=== PATIENT | female | born 1970 | race Asian ===

== ENCOUNTER 2022-12-05 21:39 | Emergency (ER) | payer BC ==
[~2022-12-05] VITALS: Ht 154.9 cm; Wt 49.9 kg
[2022-12-05 21:56] VITALS: BP 134/68; PULSE 88; RESP 16; TEMP 97.4; O2SAT 98
[2022-12-05] MEDS ORDERED: ONDANSETRON 4 MG ODT PO ONE (23:55)
[2022-12-05] MEDS ORDERED: KETOROLAC 30 MG/ML VIAL IM ONE (23:55)
[2022-12-06 01:05] LABS: BASOPHILS % (AUTO) 0.4 % (0.0-2.0); EOSINOPHILS # (AUTO) 0.1 K/uL (0-0.4); EOSINOPHILS % (AUTO) 1.3 % (0.0-4.0); HEMATOCRIT 40.2 % (36-48); HEMOGLOBIN 13.5 g/dL (12.0-16.0); LYMPHOCYTES # (AUTO) 1.5 K/uL (2.5-16.5); LYMPHOCYTES % (AUTO) 13.3 % (20.5-51.1); MEAN CORPUSCULAR HEMOGLOBIN 30 pg (27-31); MEAN CORPUSCULAR HGB CONC 34 g/dL (33-37); MEAN CORPUSCULAR VOLUME 90.3 fL (80-94); MONOCYTES # (AUTO) 0.5 K/uL (0.8-1.0); MONOCYTES % (AUTO) 4.8 % (1.7-9.3); NEUTROPHILS # (AUTO) 8.7 K/uL (1.8-7.7); NEUTROPHILS % (AUTO) 80.2 % (42.2-75.2); PLATELET COUNT (AUTO) 210 K/uL (140-450); RED BLOOD CELL COUNT(AUTO) 4.45 MIL/uL (4.20-5.40); RED CELL DISTRIBUTION WIDTH 12.9 % (11.6-13.7); WHITE BLOOD COUNT (AUTO) 10.9 K/uL (4.8-10.8)
[2022-12-06 01:19] LABS: INR 0.87 (0.8-1.2); PROTHROMBIN TIME 9.2 secs (10.8-13.4)
[2022-12-06 01:20] LABS: ALBUMIN 3.9 g/dL (3.4-5.0); ANION GAP 14.7 (8-16); CALCIUM 8.7 mg/dL (8.5-10.1); CARBON DIOXIDE 26.3 mmol/L (21-32); CREATININE 0.8 mg/dL (0.6-1.3); TOTAL BILIRUBIN 0.2 mg/dL (0.0-1.0); TOTAL PROTEIN, SERUM 7.4 g/dL (6.4-8.2)
[2022-12-06] MEDS ORDERED: IBUP-2213 PO (02:18)
[2022-12-06] MEDS ORDERED: ONDA-188 PO (02:18)
[2022-12-06 02:58] VITALS: BP 134/68; PULSE 88; RESP 16; TEMP 97.4; O2SAT 98
== END 2022-12-06 02:23 | disposition home or self-care (01) ==
LOC: MED 21:39
DX: S16.1XXA Strain of muscle, fascia and tendon at neck level, initial encounter (principal); V49.88XA Car occupant (driver) (passenger) injured in other specified transport accidents, initial encounter; Y93.89 Activity, other specified; Y92.89 Other specified places as the place of occurrence of the external cause; Y99.8 Other external cause status
CPT/HCPCS: 36415; 70450; 71045; 72125; 80053; 85025; 85610; 85730; 96372; 99285; J1885; Q0162